=== PATIENT | female | born 1945 | race Caucasian/White ===

== ENCOUNTER 2024-01-08 13:18 | Emergency (ER) | payer MEDICARE, OTHER, SELFPAY ==
[2024-01-08 13:46] VITALS: BP 122/64; PULSE 74; RESP 18; TEMP 36.8; O2SAT 100
--- NOTE | 2024-01-08 14:21 | ED.SKABFB ---
HPI - Skin/Abscess/Foreign Bdy General Chief complaint: Skin/Abscess/Foreign Body Stated complaint: rash Time Seen by Provider: 01/08/24 14:22 Source: patient, RN notes reviewed and old records reviewed Mode of arrival: ambulatory Limitations: no limitations History of Present Illness HPI narrative: 78-year-old female presents to the [facility] with a red rash under both breasts and under pannus that has been getting worse over the last 2 weeks. States that she also had poison marnie at the time which is better. Has been applying marnie dry and calamine, it has gotten worse. She says the only thing that makes it better is for aloe. Has been taking hot showers which she uses says it is making it worse. Onset (ago): week(s) (2) Related Data Home Medications Medication Instructions Recorded Confirmed carboxymethylcellulose 0.5 1 drp EACH EYE BID 01/08/24 01/08/24 %-glycerin 0.9 % eye drops (Refresh Relieva) cholecalciferol (vitamin D3) 25 25 mcg PO DAILY 01/08/24 01/08/24 mcg (1,000 unit) tablet mecobalamin (vitamin B12) 1,000 1,000 mcg PO DAILY 01/08/24 01/08/24 mcg chewable tablet omega-3 fatty acids 1,250 mg PO DAILY 01/08/24 01/08/24 Allergies Allergy/AdvReac Type Severity Reaction Status Date / Time celecoxib [From Celebrex] Allergy Rash Verified 01/08/24 13:50 Sulfa (Sulfonamide Allergy Unknown Verified 01/08/24 13:51 Antibiotics) Review of Systems Review of Systems: All systems reviewed & are unremarkable except as noted in HPI and below Constitutional: Constitutional: Reports no additional constitutional complaints Eyes: Eyes: Reports no additional eye complaints ENT: Reports system reviewed and no additional complaints, except as documented Cardiovascular: Cardiovascular: Reports no additional cardiovascular complaints, Denies chest pain and Denies dyspnea Respiratory: Respiratory: Reports no additional respiratory complaints, Denies chest congestion, Denies cough and Denies dyspnea Gastrointestinal: Gastrointestinal: Reports no additional gastrointestinal complaints, Denies abdominal pain, Denies nausea and Denies vomiting Musculoskeletal: Musculoskeletal: Reports no additional musculoskeletal complaints Integumentary/Breasts: Skin/Breast: Reports as per HPI Neurologic: Reports system reviewed and no additional complaints, except as documented Psychiatric: Psychiatric: Reports no additional psychiatric complaints Allergic/Immunologic: Allergic/Immunologic: Reports no additional allergic/immunologic complaints PMFSH Comments At the time of my signature, I reviewed and agree with the nursing past medical, surgical, social, and family history. There is no relevant family history pertinent to the patient complaint. Exam Const: General: cooperative, healthy appearing, comfortable, no acute distress, well developed, alert and well nourished Nutritional Appearance: well nourished Orientation/consciousness: patient oriented x3 Limitations: no limitations HENMT: Head: normal to inspection Ears: hearing grossly normal bilaterally and external ears normal Face/Nose/Sinus: Normal external nose present, Normal nares present, Normal nasal mucous membranes and turbinates present, normal facial exam and face symmetric Face and sinus: normal facial exam and face symmetric Eyes: General: appearance normal, both eyes and all related structures Alignment and Position: alignment normal Periorbital: periorbital findings normal Pupils: Equal, round and reactive pupils present EOM: EOMs intact bilaterally Neck: Neck: normal visual inspection, full ROM, no lymphadenopathy and no meningeal signs Chest: Chest palpation & inspection: normal inspection of the chest Resp: Effort & Inspection: normal respiratory effort and able to speak in complete sentences Auscultation: clear to auscultation bilaterally, no crackles, no rales, no rhonchi and no wheezes Cardio: Rate: regular rate Rhythm: regular rhythm
== END 2024-01-08 14:37 | disposition home or self-care (01) ==
PROVIDERS: Emergency Provider Nurse Practitioner; PCP Internal Medicine Rheumatology
DX: B37.2 Candidiasis of skin and nail (principal); Z85.828 Personal history of other malignant neoplasm of skin
CPT/HCPCS: 99213; G0463